=== PATIENT | female | born 1960 | race Caucasian/White ===

== ENCOUNTER 2018-10-04 02:38 | Outpatient (CLI) | payer BC ==
[2018-10-04 09:37] LABS: #Basophils 0.1 thou/uL (0.0-0.2); #Eosinphils 0.1 thou/uL (0.0-0.7); #Lymphocytes 2.8 thou/uL (1.20-3.40); #Monocytes 0.4 thou/uL (0.11-0.59); #Neutrophils 3.7 thou/uL (1.40-6.50); %Basophils 1.3 % (0.0-1.0); %Eosinophils 1.1 % (0.0-10.0); %Lymphocytes 40.2 % (21.0-51.0); %Monocytes 5.3 % (0.0-10.0); %Neutrophils 52.1 % (42.0-75.0); Hemoglobin 13.8 g/dL (12.0-16.0); Mean Corpuscular HGB CONC 32.4 g/dL (32.0-36.0); Mean Corpuscular Hemoglobin 28.1 pg (27.0-31.0); Mean Corpuscular Volume 86.8 fL (78.0-98.0); Mean Platelet Volume 7.1 fL (7.4-10.4); Platelet Count 359 thou/uL (130-400); RBC Distribution Width 12.3 % (11.5-14.5)
--- NOTE | 2018-10-04 16:57 | EKG ---
Test Reason : Blood Pressure : / mmHG Vent. Rate : 065 BPM Atrial Rate : 065 BPM P-R Int : 172 ms QRS Dur : 086 ms QT Int : 400 ms P-R-T Axes : 042 -23 028 degrees QTc Int : 416 ms Normal sinus rhythm Minimal voltage criteria for LVH, may be normal variant Possible Anterolateral infarct (cited on or before 18-MAR-2016) Abnormal ECG When compared with ECG of 18-MAR-2016 13:00, Vent. rate has decreased BY [address] Velvet LENNON ([id number]) on 10/04/2018 4:56:48 PM Referred By: JERSE[place] Confirmed By:DR. Velvet LENNON
== END 2018-10-04 02:39 | disposition home or self-care (01) ==
LOC: LABBT 02:38
PROVIDERS: ATTEND Orthopaedic Surgery
DX: Z01.818 Encounter for other preprocedural examination (principal); M65.311 Trigger thumb, right thumb
CPT/HCPCS: 85025; 93005; 93010

== ENCOUNTER 2018-10-06 07:25 | Day surgery (SDC) | payer BC ==
[2018-10-04 08:49] VITALS: BMI 32.3
[2018-10-06] MEDS ORDERED: Midazolam HCl 2 mg/2 ml Vial ONE ×2 (08:07→08:37)
[2018-10-06] MEDS ORDERED: CEFAZOLIN 2 GM/50 ML BAG ONE (08:07)
[2018-10-06] MEDS ORDERED: Fentanyl 100 MCG/2 ML VIAL ONE (08:37)
[2018-10-06] MEDS ORDERED: Lidocaine 1% w/Epinephrine 1:100K 20 ML VIAL ONE (09:05)
[2018-10-06] MEDS ORDERED: PROPOFOL 200 MG/20 ML VIAL ONE (12:15)
[2018-10-06] MEDS ORDERED: Lidocaine 1% PF 5 ML VIAL ONE (12:15)
[2018-10-06] MEDS ORDERED: Dexamethasone 20 MG/5 ML VIAL ONE (12:15)
[2018-10-06] MEDS ORDERED: Ondansetron PF 4 MG/2 ML Vial ONE (12:15)
--- NOTE | 2018-10-06 22:35 | OP ---
DATE OF PROCEDURE: 10/06/2018 PREOPERATIVE DIAGNOSIS: Right trigger thumb. POSTOPERATIVE DIAGNOSIS: Right trigger thumb. PROCEDURE PERFORMED: Right trigger thumb agatha release. ANESTHESIA: The patient received a LMA with 1% lidocaine with epinephrine 8 mL. TOURNIQUET TIME: 16 minutes at 250 mmHg. ANTIBIOTICS: Ancef 2 g. COMPLICATIONS: None. HISTORY OF PRESENT ILLNESS: Ms. Foster is a 58-year-old female, who presented to me with right hand pain for greater than 3 months. She works in [employer]. The patient has locking on flexion of the thumb. She got injections, which gave her 1 to 2 weeks relief, but her symptoms returned. I discussed with the patient risks and benefits of an open trigger thumb release to include pain, scar, bleeding, infection, damage to vital structures including the digital nerve, need for further surgeries, failure to release, damage to vital structures, decreased range of motion and strength, loss of function of life or limb. The patient understood the risks and benefits. DESCRIPTION OF PROCEDURE: A time-out was performed designating the patient's right upper extremity as the operative site, based on site, consents and marking. After completion of the time-out, the patient's right upper extremity was prepped and draped in a sterile fashion. Tourniquet was brought up for a total of 13 minutes. A Jonny incision over the patient's first metacarpophalangeal joint obliquely coming down, I made the incision and used scissors to bluntly dissect out the patient's digital nerves. I came down on the patient's A1 agatha, which I completely released. I ensured that I did not release the oblique ligament. I ensured that was over the patient's joint. I looked proximally and ensured I pulled the tendon up into the joint and did not see any signs of where it could be adhesed. As I set it flexed, there was no bowstringing. I then completed my release to ensure the nerves had been protected. I then washed. I closed with 4-0 nylon single stitches on my Jonny incision. I then placed 8 mL of lidocaine 1% with epinephrine in line with my incision to help with pain control postoperatively. I placed a soft tissue dressing. The patient will be followed up in about 7 to 10 days. She will have sutures removed. Begin range of motion of her finger medially. Remove soft dressing in 2 days. Ice and elevate. Job ID: [id number]
== END 2018-10-06 11:20 | disposition home or self-care (01) ==
LOC: SDC 07:25
PROVIDERS: ATTEND Orthopaedic Surgery
PROC: 0LN70ZZ Release Right Hand Tendon, Open Approach (ICD-10-PCS; principal; 2018-10-06)
DX: M65.311 Trigger thumb, right thumb (principal); I10 Essential (primary) hypertension; G43.909 Migraine, unspecified, not intractable, without status migrainosus; Z79.899 Other long term (current) drug therapy; Z91.011 Allergy to milk products; Z91.09 Other allergy status, other than to drugs and biological substances
CPT/HCPCS: J1100; J2001; J2250; J2405; J2704; J3010

== ENCOUNTER 2019-03-28 07:48 | Day surgery (SDC) | payer BC ==
[2019-03-24 09:14] VITALS: BMI 32.1
[2019-03-28] MEDS ORDERED: ceFAZolin Sodium (SDC) 2 GM/100 ML BAG ONE (08:55)
[2019-03-28] MEDS ORDERED: Thrombin 5000 UNITS/5 ML VIAL ONE (13:35)
[2019-03-28] MEDS ORDERED: Bacitracin Zinc Ointment 30 gm TUBE ONE (13:35)
[2019-03-28] MEDS ORDERED: Sodium Chloride 0.9% 0 ML ONE (13:35)
[2019-03-28] MEDS ORDERED: Bupivacaine PF 0.5% 30 ML VIAL ONE (13:35)
[2019-03-28] MEDS ORDERED: Fentanyl 100 MCG/2 ML VIAL ONE (13:38)
[2019-03-28] MEDS ORDERED: Midazolam HCl 2 mg/2 ml Vial ONE (13:38)
[2019-03-28] MEDS ORDERED: Ketorolac Tromethamine 30 MG/ML VIAL ONE (15:37)
[2019-03-28] MEDS ORDERED: Lidocaine 1% PF 5 ML VIAL ONE (15:38)
[2019-03-28] MEDS ORDERED: PROPOFOL 200 MG/20 ML VIAL ONE (15:38)
[2019-03-28] MEDS ORDERED: Ondansetron PF 4 MG/2 ML Vial ONE (15:38)
--- NOTE | 2019-03-29 08:49 | OP ---
DATE OF PROCEDURE: 03/28/2019 PREOPERATIVE DIAGNOSES: 1. Right thumb scar pain. 2. 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 3. Right thumb digital nerve scar compression. POSTOPERATIVE DIAGNOSES: 1. Right thumb scar pain. 2. 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 3. Right thumb digital nerve scar compression. PROCEDURES PERFORMED: 1. Digital nerve neuroplasty. 2. Scar excision, intermediate depth as part of wound debridement. 3. Z-plasty closure, thumb, for rearrangement of painful and contractile scar. SPECIMEN REMOVED: Scar from skin and a deep scar. TOURNIQUET TIME: 24 minutes. ESTIMATED BLOOD LOSS: 10 mL. INDICATIONS FOR PROCEDURE: The patient had a thumb A1 agatha release done with excellent result in terms of no more trigger, no pain with motion, but she noticed perceptible inability to abduct the web space and she had pain along a scar which had become thickened. Operation is indicated after 3 or more months of nonoperative treatment fail. DESCRIPTION OF PROCEDURE: After successful general endotracheal anesthesia, the limb was prepped and draped. She had time-out done appropriately. We injected her thumb with a total of 20 mL of 0.5% Marcaine proximal to the level of surgery for block effect. We then outlined her scar, removed it in an ellipse and then dissected below the skin edges and found the patient had a very thick scar, but in order to remove the subcutaneous subdermal scar, we had to do neuroplasty to protect the radial and ulnar digital nerves, especially the radial digital nerve to the thumb. Once was done and the nerves from scar, we excised the . We sent along with the skin scar for pathology. We then placed 5 mL of Celestone in the scar bed, then along the line of the previous incision we made all 4 Z-plasty bejarano all to 120 degrees to the perpendicular and then rotated them from distal to proximal and was able to repair all of them without undue tension using simple 4-0 nylon sutures. We deflated the tourniquet before tying the sutures, had excellent hemostasis, the nerves were not compressed. Bulky dressing was applied and the patient left the operating room without evidence of anesthetic or operative complication. Job ID: [id number]
--- NOTE | 2019-04-06 05:49 | PQF ---
[facility] POST DISCHARGE CLINICAL DOCUMENTATION IMPROVEMENT CLARIFICATION FORM l Todays Date: 04/06/19 l Patients Name MASON COURTNEY l l Admit Date 03/28/19 l Disch Date 03/28/19 [employer] Maker Name Conner Prakash Email: [email or web address] Cell: [phone] To be completed by [employer] Maker: Present Clinical Indicators - Signs / Symptoms Results and Location in Medical Record [ ] Documentation of: [ ] [ ] Documentation of: [ ] [ ] Documentation of: [ ] [ ] Documentation of: [ ] [ ] Risks [ ] [ ] [ ] Treatment [ ] Z-Plasty closure of R thumb excision Query for area for z-plasty on R thumb [ ] [ ] To be completed by Physician: EMERY SAHU The documentation in this patients record requires clarification to ensure coding compliance and accuracy. Check the appropriate box and include in your discharge summary. [ ] [ ] [ ] [ ] Please check this box if this does not apply to this patient [ ] Unable to determine [ ] Other diagnosis: Review the following information and exercise your independent professional judgment in responding to the clarification. Based upon the clinical findings, risk factors, and treatment, please clarify if you are treating one of the above probable or suspected diagnoses. Physician Signature: Date Time MTDD
== END 2019-03-28 17:30 | disposition home or self-care (01) ==
LOC: SDC 07:48
PROVIDERS: ATTEND Orthopaedic Surgery Hand Surgery
PROC: 01N50ZZ Release Median Nerve, Open Approach (ICD-10-PCS; principal; 2019-03-28)
PROC: 0HXFXZZ Transfer Right Hand Skin, External Approach (ICD-10-PCS; principal; 2019-03-28)
PROC: 0JBJ0ZZ Excision of Right Hand Subcutaneous Tissue and Fascia, Open Approach (ICD-10-PCS; principal; 2019-03-28)
DX: M24.541 Contracture, right hand (principal); G56.31 Lesion of radial nerve, right upper limb; L90.5 Scar conditions and fibrosis of skin; I10 Essential (primary) hypertension; G43.909 Migraine, unspecified, not intractable, without status migrainosus; E73.9 Lactose intolerance, unspecified; J45.909 Unspecified asthma, uncomplicated; E55.9 Vitamin D deficiency, unspecified; Z91.09 Other allergy status, other than to drugs and biological substances; Z98.890 Other specified postprocedural states
CPT/HCPCS: 88305; J0690; J1885; J2001; J2250; J2405; J2704; J3010; J3490; S0020

== ENCOUNTER 2020-06-20 12:26 | Outpatient (CLI) | payer BC ==
--- NOTE | 2020-06-20 13:01 | MMO ---
Bilateral MAMMO Bilat Screen [facility]. CLINICAL HISTORY: Patient is 60 years old and is seen for screening. The patient has no family history of breast cancer. The patient has no personal history of cancer. VIEWS: The views performed were: bilateral craniocaudal with tomosynthesis and bilateral mediolateral oblique with tomosynthesis. This study has been interpreted with the assistance of computer-aided detection. MAMMOGRAM FINDINGS: There are scattered fibroglandular densities. There are intramammary lymph nodes seen in both breasts. There are no suspicious masses, suspicious calcifications, or areas of architectural distortion. IMPRESSION: THERE IS NO MAMMOGRAPHIC EVIDENCE OF MALIGNANCY. A ROUTINE FOLLOW-UP MAMMOGRAM IN 1 YEAR IS RECOMMENDED. THE RESULTS OF THIS EXAM WERE SENT TO THE PATIENT. ACR BI-RADS Category 2 - Benign finding MAMMOGRAPHY NOTE: 1. A negative mammogram report should not delay a biopsy if a dominant of clinically suspicious mass is present. 2. Approximately 10% to 15% of breast cancers are not detected by mammography. 3. Adenosis and dense breasts may obscure an underlying neoplasm. Reported by: NILTON DIAZ MD Electonically Signed: [id number]
== END 2020-06-20 12:27 | disposition home or self-care (01) ==
LOC: BICMAMMO 12:26
PROVIDERS: ATTEND Family Medicine
DX: Z12.31 Encounter for screening mammogram for malignant neoplasm of breast (principal)
CPT/HCPCS: 77063; 77067

== ENCOUNTER 2022-01-15 11:22 | Outpatient (CLI) | payer BC | END 2022-01-15 11:23 | disposition home or self-care (01) | LOC: BICMAMMO 11:22 | PROVIDERS: ATTEND Family Medicine | DX: Z12.31 Encounter for screening mammogram for malignant neoplasm of breast (principal) | CPT/HCPCS: 77063; 77067 ==

== ENCOUNTER 2022-06-16 08:02 | Outpatient (CLI) | payer BC | END 2022-06-16 08:03 | disposition home or self-care (01) | LOC: NM 08:02 | PROVIDERS: ATTEND Psychiatry & Neurology Neurology | DX: R25.1 Tremor, unspecified (principal); G20 Parkinson's disease | CPT/HCPCS: 78803; A9584 ==

== ENCOUNTER 2022-09-14 07:33 | Outpatient (CLI) | payer BC | END 2022-09-14 07:34 | disposition home or self-care (01) | LOC: ULT 07:33 | PROVIDERS: ATTEND Family Medicine | DX: R31.29 Other microscopic hematuria (principal); K80.20 Calculus of gallbladder without cholecystitis without obstruction; N28.1 Cyst of kidney, acquired | CPT/HCPCS: 76770 ==

== ENCOUNTER 2022-09-21 09:36 | Outpatient (CLI) | payer BC ==
[2022-09-21] MEDS ORDERED: Iopamidol-370 76% 500 ML 1 ML ONE (11:14)
== END 2022-09-21 09:37 | disposition home or self-care (01) ==
LOC: BICCT 09:36
PROVIDERS: ATTEND Family Medicine
DX: R31.29 Other microscopic hematuria (principal); N28.1 Cyst of kidney, acquired; K57.30 Diverticulosis of large intestine without perforation or abscess without bleeding
CPT/HCPCS: 74178; 82565